=== PATIENT | male | born 1970 | race Caucasian/White ===

== ENCOUNTER 2018-06-13 00:43 | Emergency (ER) | payer OTHER, SELFPAY ==
[2018-06-13 00:44] VITALS: BP 125/86; PULSE 89; RESP 18; TEMP 35.9; O2SAT 99; BMI 34.9
[2018-06-13 01:06] VITALS: PULSE 88; RESP 16; TEMP 35.9; O2SAT 99
--- NOTE | 2018-06-13 01:34 | CT_ITS ---
STUDY: CT ABDOMEN AND PELVIS WITHOUT CONTRAST REASON FOR EXAM: Male, 48 years old. Low and mid abdominal pain since Tuesday. RADIATION DOSAGE (If Supplied By Facility): CTDIvol = ( 16.62 ) mGy, DLP = ( 938.37 ) mGycm TECHNIQUE: Transaxial images were obtained from the dome of the diaphragm to the symphysis pubis without oral contrast, and without intravenous contrast. Sagittal and coronal images were reconstructed. Individualized dose optimization techniques were used for this CT. COMPARISON: None. FINDINGS: The visualized lung bases are unremarkable. The visualized portions of the heart are within normal limits. There is decreased attenuation of the liver consistent with steatosis. Normal gallbladder and extrahepatic biliary system. Normal spleen. Normal pancreas. Normal bilateral adrenal glands. Normal right kidney. Normal left kidney. Normal visualized stomach. There is no evidence for dilated bowel, ascites or pneumoperitoneum. The small bowel has a grossly normal appearance. The descending colon is not distended. Most of stool visible in the transverse colon and ascending colon. There is acute inflammation within the pelvis located adjacent to abnormal appearing sigmoid colon. The abnormal sigmoid colon has thickened lennon with numerous diverticula suggesting sequela of acute diverticulitis. There is no evidence for abscess currently. The appendix is visualized and appears normal. There is patchy atherosclerotic calcification of the abdominal aorta, without a demonstrated aneurysm. Normal inferior vena cava. Normal retroperitoneum. Urinary bladder wall is abnormally thickened measuring approximately 6.6 mm. Normal visualized prostate gland. Normal abdominal wall. There are large lucencies within the right acetabulum and subarticular aspect of the right femur is probably related to degenerative arthropathy. Erosive arthropathy is possible as well. There also is a lucency within the right sided intertrochanteric femur. CT/Abdomen/Pelvis without Cont IMPRESSION: Probable sigmoid colon diverticulitis. Electronically Signed: Gema Sanford MD at 2:48 EDT , Service support ,
--- NOTE | 2018-06-13 01:36 | ED.VISSUMM ---
- ER Visit Summary Date of Service: 06/13/18 Chief Complaint: Abdominal pain History of Present Illness: The patient is a 48 M presenting with abdominal pain. He states this started on Tuesday. He has pain in the lower abdomen. He states he has a slight burning sensation when he urinates. Denies nausea or vomiting. Denies diarrhea or constipation. Denies fever. No change with eating. Denies testicular pain. Denies penile discharge or rash. Denies concern for STDs. Denies other complaints. Physical Examination: Vitals are stable. Patient is afebrile. Alert no acute distress. HEENT exam is unremarkable. Neck is supple. Lungs are clear and equal bilaterally. Heart is regular rate and rhythm. Abdomen is soft suprapubic tenderness with no rebound or guarding : No testicular tenderness, no discharge or rash. Extremities are unremarkable. Skin is warm and dry. No focal neurologic deficit. Remainder of exam is unremarkable. Emergency Department Course and Treatment: CBC shows white count 12.1. Chemistries unremarkable other than BUN 19. Urinalysis unremarkable. CT abdomen pelvis shows probable sigmoid colon diverticulitis. Patient drove himself to the ED. He is given a dose of Toradol IV. He is given Cipro and Flagyl. He is given prescriptions for Cipro and Flagyl. Advised to follow-up with his primary care physician. Advised to return to ED for worsening complaints Disposition: Discharge home Impression: Diverticulitis This note was generated with [employer] dictation software. It may contain incorrect words, spelling, and punctuation that were not noted in review of the chart prior to signing ED Disposition - Plan for ED Patient: Instructions: ED Diverticulitis Prescriptions: Metronidazole [Flagyl] 500 mg PO Q8H #21 tablet Ciprofloxacin [Cipro] 500 mg PO BID #14 tablet Referrals: Jono Patrick MD [NON-STAFF] -
[2018-06-13 02:03] LABS: Bacteria 0 SEEN /hpf (None Seen); Mucous, Urine 0 SEEN /hpf (<or=2+); Red Blood Cells-Urine 0 SEEN /hpf (0-5); White Blood Cells 0 SEEN /hpf (0-5)
[2018-06-13 02:08] LABS: Absolute Lymphocyte Count 1.53 X10^3/ul (0.83-4.51); Absolute Neutrophil Count 9.7 X10^3/uL (2.0-7.7); Basophil# 0.02 X10^3/uL; Basophil% 0.2 % (0-1); Eosinophil# 0.08 X10^3/uL; Eosinophils% 0.7 % (0-5); Hematocrit 45.1 % (40-54); Hemoglobin 14.5 g/dl (13.0-16.5); Lymphocyte # 1.53 X10^3/ul (4.0); Lymphocyte % 12.6 % (19-41); Mean Corp Hgb Conc 32.2 g/gl (32-36); Mean Corpuscular Hgb 29.4 pg (27.0-32.0); Mean Corpuscular Volume 91.3 fL (80-94); Mean Platelet Vol. 11.4 fl (6.2-12.0); Monocyte# 0.79 X10^3/uL; Monocyte% 6.5 % (0-10); Neutrophil # 9.68 X10^3/uL (2.7-7.7); Neutrophil % 79.8 % (47-70); Platelet Count 227 K/mm3 (150-450); RBC Distribution Width CV 14.3 % (11.6-14.6); Red Blood Count 4.94 M/mm3 (4.6-6.2); White Blood Count 12.1 K/mm3 (4.4-11.0)
[2018-06-13 02:11] LABS: POSITIVE COUNT NO; POSITIVE DIFFERENTIAL NO; POSITIVE MORPHOLOGY NO
[2018-06-13 02:14] LABS: Color, Urine Yellow (Yellow); Glucose, Dipstick Normal (Normal); Ketone-Dipstick Negative (Negative); Leukocyte Esterase-Dipstick Negative /ul (Negative); Nitrite-Dipstick Negative (Negative); Occult Blood-Urine Negative /ul (Negative); Protein-Dipstick 15 mg/dl (Negative); Urine Bilirubin Dipstick Negative (Negative); Urine Clarity Sl. Cloudy (Clear); Urine Urobilinogen Normal (Normal)
[2018-06-13 02:24] LABS: Squamous Epithelial Cells - UA 0-5 SEEN /hpf (0-5)
[2018-06-13 02:30] LABS: BUN 19 mg/dL (7-18); BUN/Creat Ratio 17.3 RATIO (10-20); Calcium,Total 8.8 mg/dL (8.5-10.1); Estimated Creatinine Clearance 81.18 ml/min; Glucose 85 mg/dL (74-106); Potassium 3.9 mmol/L (3.5-5.1); Sodium Level 138 mmol/L (136-145)
[2018-06-13 02:31] LABS: Anion Gap 8 (5-15); Chloride 104 mmol/L (98-107)
[2018-06-13 02:57] LABS: EST Glomerular Filtration Rate 77 mL/min (>60); Est Glom Filt Rate - Afr Amer 93 mL/min (>60)
--- NOTE | 2018-06-13 03:06 | ED.DEP ---
ED Disposition - Plan for ED Patient: Instructions: ED Diverticulitis Prescriptions: Metronidazole [Flagyl] 500 mg PO Q8H #21 tablet Ciprofloxacin [Cipro] 500 mg PO BID #14 tablet Referrals: Jono Patrick MD [NON-STAFF] -
[2018-06-13] MEDS: Ketorolac 30 MG/ML Syringe IV (03:19)
[2018-06-13] MEDS: metroNIDAZOLE 500 MG Tablet PO (03:19)
[2018-06-13] MEDS: Ciprofloxacin 500 MG Tablet PO (03:19)
[2018-06-13 03:21] VITALS: BP 157/86; PULSE 75; RESP 16; O2SAT 99
== END 2018-06-13 03:29 | disposition home or self-care (01) ==
LOC: ED 02:27
PROVIDERS: Emergency Provider Emergency Medicine
DX: K57.92 Diverticulitis of intestine, part unspecified, without perforation or abscess without bleeding (principal); I10 Essential (primary) hypertension; R30.0 Dysuria
CPT/HCPCS: 74176; 80048; 81001; 85025; 96374; 99284; A4216

== ENCOUNTER 2018-07-28 06:56 | Day surgery (SDC) | payer OTHER, SELFPAY ==
[2018-06-29 07:52] VITALS: BMI 34.9
--- NOTE | 2018-06-29 08:02 | HP_ITS ---
Intake Vital Signs 06/29/18 Body Mass Index (BMI) 34.9 06/29/18 Height 5 ft 8 in 06/29/18 Weight: 220 lb 06/29/18 Body Mass Index (BMI) 33.4 06/29/18 Blood Pressure 132/89 H 06/29/18 Blood Pressure Location Lt brachial 06/29/18 Blood Pressure Position Sitting 06/29/18 Respiratory Rate 18 Intake Visit Reasons: Discuss C-Scope DX Diverticulitis [place]f[employer] Technician Required: No Is patient in pain?: No Allergies No Known Allergies Allergy (Verified 06/29/18 07:52) Medications amoxicillin 875 mg-potassium clavulanate 125 mg tablet 1 tab PO BID #14 tab 06/29/18 [Rx Confirmed 06/29/18] PFSH Medical History Esophageal obstruction due to food impaction (Acute) Diverticulitis (Acute) High cholesterol (Acute) Rectal bleeding (Acute) HTN (hypertension) (Chronic) Surgical History H/O microdiscectomy (Acute) Family History Father Cancer Social History Smoking Status: Never smoker alcohol intake: current alcohol intake frequency: a few times a month ROS General General: Yes weight change and fatigue; no appetite, colon cancer, breast cancer or weakness HEENT HEENT: Yes difficulty swallowing; no eye injury, eye surgery, swollen glands or hoarseness Endo Endocrine: No thyroid disease, diabetes mellitus, thyroid cancer, Hair loss, heat intolerance or cold intolerance Skin Skin: No rash or changing moles Breast Breast: No left breast lump, right breast lump, nipple discharge, breast pain, abnormal mammogram, abnormal US or breast enlargement Musc Musculoskeletal: Yes back problems and arthritis; no rheumatoid arthritis, gout or joint pain Cardio Cardiovascular: Yes high blood pressure; no murmur, pacemaker, heart disease, atrial fibrillation, heart attack, heart stent, palpitations, shortness of breat with exertion or chest pain Psych Psychiatric: No depression, anxiety or hearing voices Resp Respiratory: No shortness of breath, No sleep apnea, No cough, No COPD, No asthma, No emphysema, No wheezing Gastro Gastrointestinal: Yes abdominal pain, No nausea or vomiting, No diarrhea, Yes constipation, Yes blood in stool, No acid reflux, No hemorrhoids, No ulcers, No gallbladder problem, No black,tarry stools Kurtis Hematologic: No blood thinners, No blood disorders, No bleeding, No anemia, No blood clots Neuro Neurologic: No system reviewed and no additional complaints, except as docu, No as per HPI, No abnormal walking, No abnormal hearing, No abnormal movements, No abnormal speech, No behavioral changes, No burning sensations, No confusion, No seizure-like activity, No unsteadiness, No dizziness, No localized weakness, No frequent falls, No headache(s), No lack of coordination, No loss of vision, No memory loss, Yes numbness, No other visual disturbances, No radiating pain, No restless legs, No sensory deficit, No fainting, Yes tingling, No tremor(s), No weakness, No other Exam Const General: cooperative, healthy appearing, comfortable, no acute distress Nutritional Appearance: overweight Orientation: alert, awake HENMT Head: normal to inspection Chest Breast Palpation: No nipple discharge Resp Effort & Inspection: normal respiratory effort Auscultation: clear to auscultation bilaterally Cardio Rate: regular rate Rhythm: regular rhythm Heart Sounds: no murmurs GI Palpation: soft, no hepatosplenomegaly Auscultation: normal bowel sounds Other: Mild tenderness to palpation left lower quadrant and suprapubic area. No guarding or rebound. No mass. Musc Cervical Spine: normal cervical lordosis Neuro Cranial Nerves: CN's II-XI intact bilaterally Extrem General: no calf tenderness bilaterally Psych Affect: normal affect Assessment & Plan Problems 1. Diverticulitis K57.92 2. Esophageal obstruction due to food impaction K22.2; T18.128A Plan I have personally reviewed the patient's CT scan and concur with probable acute sigmoid diverticulitis. I am recommending to him a colonoscopy with possible biopsy or polypectomy is indicated. He is aware of the technique, benefit, risks, alternatives. During the interview however a separate issue came to light which sounds like he has intermittent episodes of esophageal food bolus obstruction which he is able to clear with self induced vomiting. I am recommending to him a simultaneous esophagogastroduodenoscopy with possible biopsy or polypectomy removal at this setting of his colonoscopy. He is still mildly tender on examination. It is not clear whether the infection made him so lethargic missing work or whether it was the ciprofloxacin and metronidazole that was used to treat his diverticulitis. 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 He has had an opportunity to ask and have questions answered. We will treat with a one-week course of antibiotics and anticipate follow-up endoscopy subsequent to that. I very much appreciate the kind opportunity of assisting with surgical care Sister is Sowmya CC:Yolette To, DONOVAN-Flory Cortes M.D., F.A.C.S. Medications New: amoxicillin-pot clavulanate 875-125 mg 1 tab PO BID 14 tabs 0RF Coding Level of Care Code Off vis,new,level 3 Diagnoses Diverticulitis K57.92 Esophageal obstruction due to food impaction K22.2; T18.128A
[2018-07-28] VITALS (7 sets, daily range): BP systolic 120–137; BP diastolic 82–97; PULSE 63–75; RESP 16–18; TEMP 36.3–36.8; O2SAT 96–100; BMI 32.3
--- NOTE | 2018-07-28 | IMM_PTH ---
PATIENT: NAN CARLSON LOC: EN U#:[id number] AGE/SX: 48/M ROOM: RE07/28/[address]: Dr. Vasquez Cortes MD : 1970 BED: DIS: 07/28/2018 SPEC #: [id number] RECD: 07/31/18 13:11 STATUS: DEMI LILLIAM #: [id number] SILAS: 07/28/18 00:[address]: Vasquez Cortes DEPT: IMMUNOHISTOCHEMISTRY RECD BY: Jenn Blanco ENTERED: 07/31/18 13:14 SP TYPE: IMMUNO OTHR DR: Yolette To, ORE FEEDER-C Tissues: A - Stomach, NOS Procedures: H Pylori (initial) PHYSICIAN & INSTITUTION [place] [id number] SPECIMEN INFORMATION: Tissue Source: A - Antrum biopsy Clinical Info: Esophageal obstruction, food impaction Specimen Number: [id number] CPT code: 41407 METHODOLOGY: Deparaffinized sections of prefer/formalin-fixed tissue or PAP/DQ stained slides are incubated with monoclonal/polyclonal antibodies/oligonucleotide probes. Localization is made via biotin free immunoperoxidase method. Appropriate controls are performed and reacted as expected. Results on target cell population are indicated in the following table: RESULTS: ANTIBODY / CLONE RESULT Block A H Pylori (polyclonal) negative These tests were developed and their performance characteristics determined by [facility]. They may not have been cleared or approved by the U.S. Food and Drug Administration. The FDA has determined that such clearance or approval is not necessary. INTERPRETATION: A. Antrum biopsy: Negative for Helicobacter pylori organisms. SJ:noe 08/01/18
--- NOTE | 2018-07-28 08:00 | EGD_PTH ---
PATIENT: NAN CARLSON LOC: EN U#:[id number] AGE/SX: 48/M ROOM: RE07/28/[address]: Dr. Vasquez Cortes MD : 1970 BED: DIS: 07/28/2018 SPEC #: [id number] RECD: 07/28/18 09:57 STATUS: DEMI LILLIAM #: [id number] SILAS: 07/28/18 08:[address]: Vasquez Cortes DEPT: SURGICAL PATHOLOGY RECD BY: Jaiden Guzmán ENTERED: 07/28/18 11:34 SP TYPE: EGD BIOPSY OTHR DR: Yolette To, TANBARK LABORER-C Tissues: A - Gastric mucous membrane B - Gastric mucous membrane C - Esophageal mucous membrane D - Esophageal mucous membrane E - Descending colon F - Descending colon G - Sigmoid colon biopsy Procedures: Special Stain Group II Surgery Specimen Level IV Alcian Blue/PAS (control) HEADER OPERATION: Colonoscopy, EGD ([facility] [place] PRE-OP DIAGNOSIS: Esophageal obstruction D/T food impaction TISSUE SUBMITTED: A - Antrum biopsy, B - Body of stomach polyp, C - Distal esophagus biopsy, D - Mid esophagus biopsy, E - Descending polyp, F - Distal descending polyp, G - Mid sigmoid polyp MICROSCOPIC DIAGNOSIS A. Antrum biopsy: Mild gastritis. See microscopic description and comment. B. Body of stomach polyp, biopsy: Suggestive of fundic gland polyp. Focal mucosal congestion and hemorrhage. C. Distal esophagus, biopsy: Fragments of gastroesophageal mucosa with mild chronic inflammation. Intestinal metaplasia (goblet cell metaplasia) is not identified. See comment. D. Mid esophagus, biopsy: Fragments of squamous epithelium with congestion and minimal chronic inflammation. E. Descending colon polyp, biopsy: Fragments of tubulovillous adenoma. F. Distal descending colon polyp, biopsy: Tubulovillous adenoma with focal changes consistent with inflammatory polyp. G. Sigmoid polyp, biopsy: Fragments of serrated adenoma (mixed hyperplastic polyp and tubular adenoma). SJ:rg 07/31/18 COMMENT A. The results of immunohistochemistry for Helicobacter pylori will be reported separately ([id number]). C. The specimen predominantly consists of squamous epithelium. Alcian blue/PAS stain with matched control is used in the evaluation of the specimen. MICROSCOPIC DESCRIPTION Slides are reviewed. A. The specimen shows fragments of gastric mucosa with chronic inflammatory cell infiltrates in the lamina propria consisting of lymphocytes and plasma cells, consistent with mild chronic gastritis. GROSS DESCRIPTION A - Received in fixative is one container labeled with the patient's name and designated antrum biopsy. The specimen consists of two irregular fragments of light wu soft tissue that in aggregate measure 0.4 x 0.1 x 0.1 cm. The specimen is totally submitted in one cassette. B - Received in fixative is one container labeled with the patient's name and designated body of stomach polyp. The specimen consists of one irregular fragment of light wu soft tissue that measures 0.3 x 0.3 x 0.1 cm. The specimen is totally submitted in one cassette. C - Received in fixative is one container labeled with the patient's name and designated distal esophagus biopsy. The specimen consists of multiple irregular fragments of light wu soft tissue that in aggregate measure 0.8 x 0.2 x 0.1 cm. The specimen is totally submitted in one cassette. D - Received in fixative is one container labeled with the patient's name and designated mid esophagus biopsy. The specimen consists of two irregular fragments of light wu soft tissue that in aggregate measure 0.3 x 0.3 x 0.1 cm. The specimen is totally submitted in one cassette. E - Received in fixative is one container labeled with the patient's name and designated descending polyp. The specimen consists of multiple irregular fragments of light wu soft tissue that in aggregate measure 0.8 x 0.8 x 0.1 cm. The specimen is totally submitted in one cassette. F - Received in fixative is one container labeled with the patient's name and designated distal descending polyp. The specimen consists of a pink-red polyp measuring 1 x 1 x 0.7 cm. The apparent base is inked. The polyp is bisected. The entire specimen is submitted in one cassette. G - Received in fixative is one container labeled with the patient's name and designated sigmoid polyp. The specimen consists of two irregular fragments of light wu soft tissue that in aggregate measure 0.5 x 0.3 x 0.1 cm. The specimen is totally submitted in one cassette. / SJ:rg 4/26/19 TC:1 CPT: 62437 x7, 40242
--- NOTE | 2018-07-28 09:21 | OP.ENDO_ITS ---
07/28/2018 Horace Newman Re : Upper GI endoscopy procedure for Haseeb Ovalle Yousuf This procedure was performed on Saturday, July 28, 2018. My impressions and recommendations are as follows: Impressions : - Reflux esophagitis. Biopsied. Also mid esophagus biopsied - Small hiatal hernia. - Erythematous mucosa in the antrum. Biopsied. - A few gastric polyps. Resected and retrieved one. - Normal examined duodenum. Recommendations : - Await pathology results. - Discharge patient to home. - Resume previous diet. - Continue present medications. - Use Prilosec (omeprazole) 40 mg PO daily. My findings are described in the full procedure note, which is enclosed. If I can be of further assistance, please feel free to contact me at Doctor phone number(s): Work: . Sincerely, Vasquez Cortes MD 07/28/2018 9:21:35 AM This report has been signed electronically.
--- NOTE | 2018-07-28 09:29 | OP.ENDO_ITS ---
07/28/2018 Horace Newman Re : Colonoscopy procedure for Haseeb Ruizler This procedure was performed on Saturday, July 28, 2018. My impressions and recommendations are as follows: Impressions : - Hemorrhoids found on perianal exam. - One 10 mm polyp in the mid descending colon, removed using injection-lift and a hot snare. Resected and retrieved. Clip was placed. - One 13 mm polyp in the distal descending colon. Pedunculated, endoloop replaced the snare resected and retrieved. Clip was placed. - One 5 mm polyp in the mid sigmoid colon, removed with a cold biopsy forceps. Resected and retrieved. - Diverticulosis in the sigmoid colon and in the descending colon. Recommendations : - Discharge patient to home. - Resume previous diet. - Continue present medications. - Repeat colonoscopy in 1 year for surveillance based on pathology results. - Telephone my office for pathology results in 1 week. My findings are described in the full procedure note, which is enclosed. If I can be of further assistance, please feel free to contact me at Doctor phone number(s): Work: . Sincerely, Vasquez Cortes MD 07/28/2018 9:29:02 AM This report has been signed electronically.
== END 2018-07-28 10:16 | disposition home or self-care (01) ==
LOC: EN 06:57 → AC 06:58
PROVIDERS: Family Provider Nurse Practitioner Family; PCP Nurse Practitioner Family; Referring Provider Nurse Practitioner Family; Visit Provider Surgery
PROC: 0DJD8ZZ Inspection of Lower Intestinal Tract, Via Natural or Artificial Opening Endoscopic (ICD-10-PCS; CPT 45378; principal; 2018-07-28 07:55)
DX: K22.2 Esophageal obstruction (principal); K21.0 Gastro-esophageal reflux disease with esophagitis; K44.9 Diaphragmatic hernia without obstruction or gangrene; K29.70 Gastritis, unspecified, without bleeding; K31.7 Polyp of stomach and duodenum; D12.4 Benign neoplasm of descending colon; D12.5 Benign neoplasm of sigmoid colon; K57.32 Diverticulitis of large intestine without perforation or abscess without bleeding; R13.10 Dysphagia, unspecified; K31.89 Other diseases of stomach and duodenum; K64.9 Unspecified hemorrhoids; I10 Essential (primary) hypertension; E78.00 Pure hypercholesterolemia, unspecified; E66.3 Overweight; Z68.32 Body mass index [BMI] 32.0-32.9, adult
CPT/HCPCS: 43239; 45380; 45385; 88305; 88313; 88342; J7120; A4216

== ENCOUNTER 2018-11-27 15:39 | Emergency (ER) | payer OTHER, SELFPAY ==
[2018-07-28 07:13] VITALS: BMI 32.3
[2018-11-27 15:40] VITALS: BP 161/97; PULSE 99; RESP 18; TEMP 36.4; O2SAT 99; BMI 33.2
--- NOTE | 2018-11-27 16:18 | ED.VIS.GEN ---
History of Present Illness Chief Complaint: Back Narrative: Patient has been having right buttock discomfort with radiation down his right lower extremity for the past month. He saw 2 different independent orthopedic surgeons who told him he needed a right hip replacement, patient states he did and he had it done 2 weeks ago in [place]. He states he is still having the sciatica pain, and as a matter fact noticed it was pretty significant in the recovery room after his surgery. He states in the past 2 weeks sciatica pain is gotten worse and worse to the point where he is almost bedbound because he cannot sit or stand for more than a couple minutes because of excruciating pain. His hip is sore but is not the source of the pain that is shooting down his leg to his foot along with numbness and now he is weak. Does not know exactly how long he has had weakness in his leg. Denies any bowel or bladder dysfunction. No numbness in his groin. Denies any fevers. He states that [facility] offered to help him with regards to trying to get an MRI approved but they would have to see him first and that is 1.5 hours away and he cannot physically be in the position to be in a car because of excruciating pain despite taking several oxycodone and hydromorphone and prednisone. He states he has seen a chiropractor for this and was directed to the hospital, which is why he is here. - Past Medical History (1) Diverticulitis Status: Suspected Past Medical History - Allergies and Home Meds Allergies/Adverse Reactions: Allergies No Known Allergies Allergy (Verified 07/28/18 07:25) Primary Care Physician: Yolette To NP-C [Primary Care Provider] - Surgical History: total hip arthroplasty Lives: Spouse/ Significant Other Smoking Status: Never smoker Review of Systems General: Denies: Chills, Fever, Sweats Eyes: Denies: Visual changes - bilaterally, Diplopia ENT: Denies: Rhinorrhea, Sore throat Cardiovascular: Denies: Chest pain, Palpitations Respiratory: Denies: Dyspnea, Cough, Dyspnea on exertion Gastrointestinal: Denies: Abdominal pain, Nausea, Vomiting, Diarrhea, Melena, Hematochezia Genitourinary: Denies: Dysuria, Hematuria, Frequency Musculoskeletal: Reports: Back pain, Extremity Pain Skin: Denies: Rash, Wounds Neurological: Reports: Weakness, Numbness. Denies: Headache Physical Exam Vital Signs/Narrative: Vital Signs Temp Pulse Resp BP Pulse Ox 11/27/18 15:40 97.6 F L 99 18 161/97 H 99 Inital Vital Signs reviewed: Yes General: Well nourished, Well developed, No Acute Distress Head: Normocephalic, Atraumatic Eyes: Perrl, EOMI ENT: Moist mucous membranes, No rhinorrhea Cardiovascular: Regular rate, Regular rhythm, No murmurs Respiratory: No distress, CTA bilaterally, Chest nontender Abdomen: Soft, Nontender, Nondistended, Normal bowel sounds Back: Nontender, Normal Inspection. Negative for: CVA tenderness, Spinal tenderness Extremities: No edema, Tenderness - Mild tenderness around right hip, good range of motion without significant pain Skin: Normal color, No rash, - - Right hip incision clean dry and intact, mildly sore without signs of infection. Neurological: Alert, Oriented x3, Cranial nerves II-XII grossly intact, Parasthesia - Left anterior thigh, normal sensation below the knee, Weakness - Right lower extremity 4/5 strength throughout. Decreased patella and Achilles reflexes. Toes downgoing bilaterally, no clonus bilaterally. Normal DTRs and strength left lower extremity. Psychological: Normal affect, Normal Mood Diagnostic/Tx/Re-eval Clinical Impression(s) from Imaging Studies Lumbar Spine X-Ray 11/27/18 16:26 IMPRESSION: 1. Mild degenerative changes. No fracture. Electronically Signed: Batsheva Willson MD at 16:50 EDT Tel , Service support , - Medical Decision Making I discussed at length patient with his options. I attempted to get an MRI, however MRI is no longer doing inpatients because it is after hours and they are doing outpatient for a couple of hours, and he does not have acute neurologic compromise to justify a stat MRI. They recommend getting an outpatient MRI. We attempted to get preapproval through the hospital preapproval personnel, however someone has already started the preapproval process for a lumbar spine MRI on behalf of this patient, and they will not give us that information because of privacy laws, the patient thinks it might of been his orthopedic down at [place]. We did obtain some x-rays in the meantime, they showed some degenerative changes but nothing acute. He was comfortable as long as he was supine. I offered admission, however knowing that it will be a 23-hour observation, if it is done to obtain an MRI, he will likely be charged for the visit because insurance will not cover it. In discussing this with him, he opts to go home and continue to attempt the preapproval process as an outpatient. He has for some analgesics prior to going because it is painful to get in position for car ride, which I have no problem with. ED Disposition - Plan for ED Patient: Disposition: Home or Assisted Living Diagnosis: Back pain with right-sided sciatica Instructions: BACK PAIN w/ SCIATICA [facility]opaedic, [facility] [Other] (rosa m)
--- NOTE | 2018-11-27 16:26 | RAD_ITS ---
STUDY: X-RAY - LUMBAR SPINE REASON FOR EXAM: Male, 48 years old. Left side hip pain. TECHNIQUE: 3 view(s) of the lumbar spine were obtained. COMPARISON: None FINDINGS: Normal lumbar lordosis. There is no substantial scoliosis. No fracture or subluxation. Vertebral body heights are well-maintained. Mild disc space narrowing at L4-5. Remaining disc space heights are unremarkable. The soft tissue structures are unremarkable. RAD/Lumbar Spine 2 or 3 Views IMPRESSION: 1. Mild degenerative changes. No fracture. Electronically Signed: Batsheva Willson MD at 16:50 EDT Tel , Service support ,
[2018-11-27] MEDS: HYDROmorphone 1 MG/ML Syringe 2 MG IM (18:23)
[2018-11-27 19:08] VITALS: BP 124/78; PULSE 72; RESP 16; O2SAT 97
== END 2018-11-27 19:09 | disposition home or self-care (01) ==
PROVIDERS: Emergency Provider Emergency Medicine; Family Provider Nurse Practitioner Family; PCP Nurse Practitioner Family
DX: M54.31 Sciatica, right side (principal); R20.0 Anesthesia of skin; Z79.82 Long term (current) use of aspirin; Z79.1 Long term (current) use of non-steroidal anti-inflammatories (NSAID); Z79.891 Long term (current) use of opiate analgesic; Z79.899 Other long term (current) drug therapy; Z74.01 Bed confinement status; Z96.641 Presence of right artificial hip joint
CPT/HCPCS: 72100; 96372; 99282

== ENCOUNTER → 2018-12-01 14:21 | Outpatient (CLI) | payer OTHER, SELFPAY ==
[2018-11-27 15:40] VITALS: BMI 33.2
--- NOTE | 2018-12-01 14:27 | MRI_ITS ---
STUDY: MRI LUMBAR SPINE WITHOUT CONTRAST REASON FOR EXAM: Male, 48 years old. Severe back pain, right hip pain and decreased reflexes in the right leg. TECHNIQUE: Standardized fat and water weighted pulse sequences were obtained in the sagittal and axial planes. COMPARISON: CT of the abdomen and pelvis without contrast 06/13/2018. FINDINGS: T11-T12: (Sagittal only). Normal endplates. Mild disc space height narrowing. Normal disc hydration and morphology. Normal ventral extra dural defect. Normal central canal and bilateral intervertebral neural foramina. Benign focal fatty infiltration involving the posterior-superior corner of the T11 vertebral body is confirmed on the sagittal STIR sequence. T12-L1: (Sagittal only). Normal endplates. Normal disc height, hydration and morphology. No ventral extradural defect. Normal central canal and bilateral intervertebral neural foramina. Normal lumbar lordosis. There is no substantial scoliosis. Normal conus medullaris that terminates at the lower T12 vertebral body level. L1-2: Normal endplates. Normal disc height, hydration and morphology. Normal bilateral facet joints. Normal central canal and bilateral lateral recesses. Normal bilateral intervertebral neural foramina. Small left renal cyst is visible at this level. L2-3: Normal endplates. Normal disc height. Minimal loss of disc hydration. Small posterior T2 hyperintensity zone underneath the right posterior bulging annulus is annular fissure. Mild asymmetric central canal stenosis with an AP canal diameter of 8 mm. Mild dorsal epidural lipomatosis. Normal bilateral lateral recesses. Normal facet joints. Normal bilateral intervertebral neural foramina. L3-4: Normal endplates. Normal disc height. Small posterior T2 hyperintensity zone underneath the posterior bulging annulus is annular fissure. Moderate central canal stenosis with an AP canal diameter of 7 mm. Prominent dorsal epidural lipomatosis. Normal facet joints. Normal bilateral lateral recesses. Normal bilateral intervertebral neural foramina. Round benign focal fatty infiltration in the right central aspect of the L3 vertebral body is confirmed on the sagittal STIR sequence. L4-5: Schmorl's node in the L4 inferior endplate. Normal L5 superior endplate. Prominent right ventral extradural defect is highly suspicious for recurrent disc extrusion. This is displacing the right L5 nerve root sleeve. Posterior bulging of the thecal sac underneath the hemilaminectomy site. Normal left lateral recesses. Normal central canal. Normal bilateral intervertebral neural foramina. L5-S1: Normal endplates. Moderate disc space height narrowing. Posterior marginal spurs without deformity of the thecal sac due to the prominent ventral epidural fat. Spurs are better seen on the prior CT. Normal tapered termination of the thecal sac. Posterior bulging of the thecal sac from prior laminectomy. Normal bilateral lateral recesses. Moderate left degenerative facet arthropathy. Normal right facet joint. Normal bilateral intervertebral neural foramina. Normal visualized sacral ala. Normal visualized paraspinous soft tissue structures. MRI/Spine Lumbar (Routine) IMPRESSION: 1. Large right ventral extradural defect at L4-L5 disc level is highly suspicious for recurrent disc extrusion. This is causing severe stenosis of the right lateral recess and posterior displacement of the right L5 nerve root sleeve. However, this ventral extradural defect was present on CT of the abdomen and pelvis of 06/13/2018. MRI of the lumbar spine with intravenous contrast will be very helpful in distinguishing postoperative fibrosis from recurrent disc extrusion. 2. Moderate central canal stenosis at L3-L4 disc level with an AP canal diameter of 7 mm, small posterior annular fissure underneath the posterior bulging annulus and prominent dorsal epidural lipomatosis. My opinion, this is unchanged when compared to 06/13/2018. 3. Mild asymmetric central canal stenosis at L2-L3 disc level with an AP canal diameter of 8 mm and a small posterior annular fissure underneath the right posterior bulging annulus at L2-L3 disc level. In my opinion, this is unchanged when compared to 06/13/2018. 4. Prominent posterior marginal spurs at L5-S1 disc level with moderate disc space height narrowing. These posterior marginal spurs are better seen on previous CT of 06/13/2018. No ventral extradural defect due to presence of prominent ventral epidural fat. Electronically Signed: Robert Gee MD at 15:51 EDT , Service support ,
== END ==
PROVIDERS: Family Provider Nurse Practitioner Family; PCP Nurse Practitioner Family
DX: M54.16 Radiculopathy, lumbar region (principal)
CPT/HCPCS: 72148

== ENCOUNTER 2020-05-06 06:46 | Day surgery (SDC) | payer OTHER, SELFPAY ==
[2020-05-06 07:19] VITALS: BP 138/91; PULSE 67; RESP 16; TEMP 36.7; O2SAT 94; BMI 36.1
[2020-05-06] MEDS: Lactated Ringers 1,000 ML 100 ML IV (07:24)
--- NOTE | 2020-05-06 08:03 | HP.PCM_ITS ---
Problem List (1) Personal history of colonic polyps Status: Acute History of Present Illness Date of Admission: 05/06/20 The patient is a 50 year old M who has a personal history of colon polyps and presents for colonoscopy. Virtual visit is as follows. Intake Intake Visit Reasons: PHONE VISIT, CSCOPE Allergies No Known Allergies Allergy (Verified 04/03/20 07:13) Medications magnesium oxide 500 mg tablet 500 mg PO QHS tab 04/03/20 [History Confirmed 04/03/20] PFSH Medical History (Updated 04/03/20 @ 07:[address] Vasquez Cortes MD) GERD with esophagitis (Acute) Gastritis (Acute) Personal history of colonic polyps (Acute) Esophageal obstruction due to food impaction (Acute) Diverticulitis (Acute) High cholesterol (Acute) Rectal bleeding (Acute) HTN (hypertension) (Chronic) Surgical History (Updated 04/03/20 @ 07:14 by Jillian Gibson) H/O microdiscectomy (Acute) History of colonoscopy (Acute ~01/2019) History of esophagogastroduodenoscopy (EGD) (Acute ~01/2019) Family History Father Cancer Social History (Updated 04/03/20 @ 07:[address] Vasquez Cortes MD) Smoking Status: Never smoker alcohol intake: current alcohol intake frequency: a few times a month HPI HPI Details: Patient was informed that this visit will be billed to patient. This visit was conducted during - pandemic. NAN CARLSON, is a 49 M who Was contacted by phone today. He is present in at his home and I am present in the office. On July 28, 2018 I performed a combined esophagogastroduodenoscopy with biopsy and colonoscopy with polypectomy. His upper endoscopy showed mild gastritis and some fundic gland polyps. The distal esophagus had some mild chronic inflammation. There was no evidence of Walsl's. The mid esophageal biopsies showed minimal chronic inflammation. The colonoscopyRequired in the mid descending colon a saline lift with hot snare resection and clip placement for 10 mm polyp which was tubulovillous adenoma. There was a distal descending colon polyp measuring 13 mm that was pedunculated. And an Endoloop was placed. And then a hemostatic clip was placed after resection as well. Pathology on that showed tubulovillous adenoma with focal changes consistent with an inflammatory polyp. And then additionally there is a sigmoid polyp measuring 5 mm that was taken with cold forceps. That was fragments of serrated adenoma mixed hyperplastic and tubular adenoma. I felt that he was at increased based upon this pathology and I recommended a very short-term follow-up colonoscopy.This is to assure that complete resection had been achieved. I discussedThe finding of the upper endoscopy as well. I encouraged him that if he is having some indigestion or reflux symptoms that he be on a acid reducing medication either omeprazole or famotidine.He expressed understanding. He otherwise denies any general health issues. Denies fever or chills or cough or shortness of breath. No abdominal change of bowel habits. No history of DVT. He denies any exposure to anyone known with COVID-19. Exam Details: Details:: Exam was limited due to phone visit with no video. Quality Reporting Tobacco Screening ([facility]) Smoking Status: Never smoker Assessment & Plan Problems 1. Personal history of colonic polyps Z86.010 2. Chronic superficial gastritis without bleeding K29.30 3. Gastroesophageal reflux disease with esophagitis without hemorrhage K21.00 Plan I recommended the patient a colonoscopy with possible biopsy or polypectomy as indicated. He is aware of the technique, benefit, risk, alternatives. His previous procedure was performed with monitored anesthesia care. We will do likewise. He will schedule and proceed at his discretion. Vasquez Cortes M.D., F.A.C.S. Coding Level of Care Code Level 2 Telephone Diagnoses Personal history of colonic polyps Z86.010 Chronic superficial gastritis without bleeding K29.30 ??Gastritis type: superficial ??Chronicity: chronic ??Gastritis bleeding: without bleeding Gastroesophageal reflux disease with esophagitis without hemorrhage K21.00 ??Esophagitis bleeding: without hemorrhage Past Medical History Medical History: Medical History (Last Reviewed 04/03/20 @ 07:14 by Jillian Gibson) GERD with esophagitis (Acute) K21.00 Gastritis (Acute) K29.70 Personal history of colonic polyps (Acute) Z86.010 Esophageal obstruction due to food impaction (Acute) K22.2, T18.128A Diverticulitis K57.92 High cholesterol E78.00 Rectal bleeding K62.5 HTN (hypertension) I10 Allergies No Known Allergies Allergy (Verified 05/06/20 07:03) Home Medications: Ambulatory Orders Medication Instructions Recorded magnesium oxide 500 mg tablet 500 mg PO QHS tab 04/03/20 Surgical History: Surgical History (Last Updated 04/03/20 @ 07:14 by Jillian Gibson) H/O microdiscectomy Z98.890 x 3 History of colonoscopy Onset Date: ~01/2019 Z98.890 History of esophagogastroduodenoscopy (EGD) Onset Date: ~01/2019 Z98.890 Surgical History: total hip arthroplasty Smoking Status: Current some day smoker Tobacco Use: Chew Review of Systems Constitutional: Denies: Fever Cardiovascular: Denies: Chest Pain Respiratory: Denies: Cough, Shortness of Breath Gastrointestinal: Denies: Abdominal Pain Endocrine: Denies: Change in Body Habitus VTE Information - Inpt Only VTE Present on Admission: No - Physical Exam Vitals/I&O's: Vital Signs Temp Pulse Resp BP Pulse Ox 98.1 F 67 16 138/91 H 94 05/06/20 07:19 05/06/20 07:19 05/06/20 07:19 05/06/20 07:05/06/20 07:19 Oxygen Delivery Method Room Air Weight: 244 lb 11.41 oz Body Mass Index (BMI) 36.1 General: Alert, Oriented x3, Cooperative, No apparent distress Oral: Moist Mucosa Lungs: Clear to auscultation, Normal air movement Cardiovascular: Regular rate, Regular Rhythm Abdomen: Soft, Non Tender Extremities: No Calf Tenderness Psych/Mental Status: Normal Affect Microbiology Past 72 Hours 05/05/20 11:20 Interface Orders SARS-CoV-2 Antigen (Rapid) - Final Current Medications Lactated Ringer's () 1,000 mls @ 100 mls/hr IV .Q10H [facility] Last Admin: 05/06/20 07:24 Dose: 100 mls/hr Documented by: Assessment/Plan All Active Problems (Last Reviewed 04/03/20 @ 07:14 by Jillian Gibson) GERD with esophagitis (Acute) Gastritis (Acute) Personal history of colonic polyps (Acute) Esophageal obstruction due to food impaction (Acute) Patient with a previous history of colon polyps. I recommend to him a colonoscopy with possible biopsy or polypectomy is indicated. He is aware of the technique, benefit, risk, alternatives. He has had an opportunity to ask and have questions answered. We will proceed as noted. Vasquez Cortes M.D., F.A.C.S. Procedure Criteria Procedure Type: Elective COVID Risk Discussion: The surgeon/proceduralist and patient have discussed in detail the risk of exposure to and/or potential harm posed by the COVID-19 virus with having a surgery/procedure at this time versus the risk of delaying the surger y/procedure. It is not possible to know either the risk of delaying the surgery or procedure or chance of getting an infection with perfect accuracy, but a joint decision was made between the patient and the surgeon/proceduralist to proceed at this time with the scheduled surgery/procedure as indicated on the consent form.
[2020-05-06 08:32] VITALS: BP 116/72; BP 138/91; PULSE 74; RESP 16; TEMP 36.5; O2SAT 94
--- NOTE | 2020-05-06 08:35 | OP.CCLET_ITS ---
05/06/2020 Rhiannon Obrien Do Re : Colonoscopy procedure for Haseeb Hadley Dear Dr. Obrien This procedure was performed on Wednesday, May 06, 2020. My impressions and recommendations are as follows: Impressions : - Non-thrombosed internal hemorrhoids and internal hemorrhoids that prolapse with straining, but spontaneously regress to the resting position (Grade II) found on digital rectal exam. - Diverticulosis in the sigmoid colon and in the descending colon. - The examination was otherwise normal. - No specimens collected. Recommendations : - Discharge patient to home. - Resume previous diet. - Continue present medications. - Repeat colonoscopy in 5 years for surveillance. My findings are described in the full procedure note, which is enclosed. If I can be of further assistance, please feel free to contact me at Doctor phone number(s): Work: . Sincerely, Vasquez Cortes MD 05/06/2020 8:35:10 AM This report has been signed electronically.
--- NOTE | 2020-05-06 08:35 | OP.COLON_ITS ---
Patient Name: Haseeb Hadley Procedure Date: 05/06/2020 8:06 AM Date of : 1970 Age: 50 Procedure: Colonoscopy Indications: High risk colon cancer surveillance: Personal history of colonic polyps Providers: Vasquez Cortes MD Referring MD: Rhiannon Obrien Do Medicines: See the Anesthesia note for documentation of the administered medications Patient Profile: Last Colonoscopy: July 2018. Complications: No immediate complications. Procedure: Pre-Anesthesia Assessment: - Prior to the procedure, a History and Physical was performed, and patient medications and allergies were reviewed. The patient's tolerance of previous anesthesia was also reviewed. The risks and benefits of the procedure and the sedation options and risks were discussed with the patient. All questions were answered, and informed consent was obtained. Prior Anticoagulants: The patient has taken no previous anticoagulant or antiplatelet agents. ASA Grade Assessment: II - A patient with mild systemic disease. After reviewing the risks and benefits, the patient was deemed in satisfactory condition to undergo the procedure. After I obtained informed consent, the scope was passed under direct vision. Throughout the procedure, the patient's blood pressure, pulse, and oxygen saturations were monitored continuously. The colonoscope was introduced through the anus and advanced to the cecum, identified by appendiceal orifice and ileocecal valve. The colonoscopy was performed without difficulty. The patient tolerated the procedure well. The quality of the bowel preparation was good. The ileocecal valve and the appendiceal orifice were photographed. Scope In: 8:17:17 AM Scope Withdrawal Time 0 hours 8 minutes 40 seconds Scope Out: 8:29:53 AM Total Procedure Duration Time 0 hours 12 minutes 36 seconds Findings: The digital rectal exam findings include non-thrombosed internal hemorrhoids and internal hemorrhoids that prolapse with straining, but spontaneously regress to the resting position (Grade II). Pertinent negatives include normal prostate (size, shape, and consistency). Multiple diverticula were found in the sigmoid colon and descending colon. The exam was otherwise without abnormality. Impression: - Non-thrombosed internal hemorrhoids and internal hemorrhoids that prolapse with straining, but spontaneously regress to the resting position (Grade II) found on digital rectal exam. - Diverticulosis in the sigmoid colon and in the descending colon. - The examination was otherwise normal. - No specimens collected. Recommendation: - Discharge patient to home. - Resume previous diet. - Continue present medications. - Repeat colonoscopy in 5 years for surveillance. Procedure Code(s): --- Professional --- 39335, Colonoscopy, flexible; diagnostic, including collection of specimen(s) by brushing or washing, when performed (separate procedure) Diagnosis Code(s): --- Professional --- Z86.010, Personal history of colonic polyps K64.1, Second degree hemorrhoids K57.30, Diverticulosis of large intestine without perforation or abscess without bleeding CPT copyright 2017 [employer]. All rights reserved. The codes documented in this report are preliminary and upon inspector filters review may be revised to meet current compliance requirements. Vasquez Cortes MD 05/06/2020 8:35:10 AM This report has been signed electronically. Number of Addenda: 0 Note Initiated On: 05/06/2020 8:06 AM
[2020-05-06 08:37] VITALS: BP 103/68; BP 138/91; PULSE 75; RESP 16; O2SAT 95
[2020-05-06 08:42] VITALS: BP 138/91; BP 99/73; PULSE 80; RESP 16; O2SAT 94
[2020-05-06 08:47] VITALS: BP 105/62; BP 138/91; PULSE 63; RESP 16; TEMP 36.2; O2SAT 958
[2020-05-06 08:55] VITALS: BP 138/91
== END 2020-05-06 09:07 | disposition home or self-care (01) ==
LOC: EN 06:47 → AC 06:47
PROVIDERS: PCP Family Medicine; Referring Provider Family Medicine; Visit Provider Surgery
PROC: 0DJD8ZZ Inspection of Lower Intestinal Tract, Via Natural or Artificial Opening Endoscopic (ICD-10-PCS; CPT 45378; principal; 2020-05-06 07:55)
DX: Z12.11 Encounter for screening for malignant neoplasm of colon (principal); K57.30 Diverticulosis of large intestine without perforation or abscess without bleeding; K64.1 Second degree hemorrhoids; Z20.822 Contact with and (suspected) exposure to COVID-19; K21.00 Gastro-esophageal reflux disease with esophagitis, without bleeding; I10 Essential (primary) hypertension; E78.00 Pure hypercholesterolemia, unspecified; G25.81 Restless legs syndrome; F17.220 Nicotine dependence, chewing tobacco, uncomplicated; Z86.010 Personal history of colon polyps
CPT/HCPCS: 45378; 87426; C9803; J7120

== ENCOUNTER → 2022-11-30 | Outpatient (CLI) | payer OTHER, SELFPAY ==
--- NOTE | 2022-11-30 14:00 | CT_ITS ---
We are attempting to reach an attending provider to discuss findings. An addendum with communication details will be sent when the communication is complete. STUDY: CT ABDOMEN AND PELVIS WITH CONTRAST REASON FOR EXAM: Male, 52 years old. Abdominal pain, acute bowel changes RADIATION DOSAGE (If Supplied By Facility): CTDIvol = ( 21.18 ) mGy, DLP = ( 1725.45 ) mGycm TECHNIQUE: Transaxial images were obtained from the dome of the diaphragm to the symphysis pubis without oral contrast. Oral and amp; IV Readi-CAT and amp; 100mL Isovue-300 was administered. Sagittal and coronal images were reconstructed. Individualized dose optimization techniques were used for this CT. COMPARISON: June 13, 2018 CT scan abdomen and pelvis FINDINGS: The visualized lung bases are unremarkable. The visualized portions of the heart are within normal limits. There is decreased attenuation of the liver consistent with steatosis. Normal gallbladder and extrahepatic biliary system. Normal spleen. Normal pancreas. Normal bilateral adrenal glands. Normal right kidney. There is a small cyst left kidney measuring 1.2 cm not seen on the prior noncontrasted study. Hounsfield units in the range of fluid. Contrast is present within the stomach. At the time of this study there is a partly fluid partly contrasted filled appearance of the stomach. Normal small intestine. Within the descending colon/proximal sigmoid there is a visualized 5 cm segment of wall thickening and stranding in the small focus of possible early developing phlegmonous inflammation adjacent to the cranial portion of the colon. This is in the setting of several diverticula within the distal descending colon at this level. There is no visualized free air. The appendix is visualized and appears normal. There is partial calcification of the infrarenal aorta. Normal inferior vena cava. Normal retroperitoneum. The bladder is partially decompressed the wall is thickened. Normal visualized prostate gland. Normal abdominal wall. There is a visualized spinal fusion from the level of L4 to the sacrum. There are disc spacers present at L4-L5 and L5-S1. There has been a laminectomy at the level of L5-S1. There has been a right hip arthroplasty. CT/Abdomen/Pelvis WITH Contrast IMPRESSION: Findings are suspicious for a 5 cm segment inflammation, acute diverticulitis within the descending colon/sigmoid within the mid pelvis. There is a focus of inflammatory change which may be around a focal inflamed diverticula versus a small focus of early developing phlegmonous focus measuring 1.2 x 1.5 cm. There is no visualized free air or obvious microleak. Decompressed mildly thick-walled appearance of the bladder could consider cystitis. Degenerative change of the thoracolumbar spine. Status post spinal fusion L3-S1. Mild hepatic steatosis. Status post right hip arthroplasty. Electronically Signed: Yanique Travis MD at 16:43 EDT ,
[2022-11-30 14:38] LABS: CREATININE FINGERSTICK 1.3 mg/dL (0.70-1.30)
[2022-11-30 15:08] LABS: Absolute Lymphocyte Count 2.07 X10^3/uL (0.83-4.51); Absolute Neutrophil Count 2.3 X10^3/uL (2.0-7.7); Basophil# 0.04 X10^3/uL; Basophil% 0.8 % (0-1); Eosinophil# 0.12 X10^3/uL; Eosinophils% 2.4 % (0-5); Hematocrit 44.2 % (40-54); Hemoglobin 13.8 g/dL (13.0-16.5); Lymphocyte # 2.07 X10^3/ul (0.83-4.51); Lymphocyte % 41.6 % (19-41); Mean Corp Hgb Conc 31.2 g/dL (32-36); Mean Corpuscular Hgb 29.2 pg (27.0-32.0); Mean Corpuscular Volume 93.6 fL (80-94); Mean Platelet Vol. 11.1 fl (6.2-12.0); Monocyte# 0.44 X10^3/uL; Monocyte% 8.8 % (0-10); NRBC Flagged by Analyzer 0 % (0-5); Neutrophil % 46.2 % (47-70); Platelet Count 252 K/mm3 (150-450); RBC Distribution Width CV 13.7 % (11.6-14.6); RBC Distribution Width SD 46.5 fl (35.1-43.9); Red Blood Count 4.72 M/mm3 (4.6-6.2)
[2022-11-30 15:25] LABS: ALB/GLOB Ratio 0.8 RATIO (0.9-2.4); AST(SGOT) 16 U/L (15-37); Alanine Aminotransfer ALT/SGPT 36 U/L (16-61); Albumin, Serum 3.3 g/dL (3.2-5.0); Alkaline Phosphatase 52 U/L (45-117); Anion Gap 6 (5-15); BUN 15 mg/dL (7-18); BUN/Creat Ratio 15.7 RATIO (10-20); Calcium,Total 8.8 mg/dL (8.5-10.1); Chloride 102 mmol/L (98-107); Creatinine, Serum 0.96 mg/dL (0.70-1.30); EST Glomerular Filtration Rate 88 mL/min (>60); Est Glom Filt Rate - Afr Amer 107 mL/min (>60); Globulin 4.1 g/dL (2.2-4.2); Glucose 92 mg/dL (74-106); Lipase 37 U/L (13-75); Potassium 4.2 mmol/L (3.5-5.1); Protein, Total 7.4 g/dL (6.4-8.2); Sodium Level 136 mmol/L (136-145)
== END | disposition home or self-care (01) ==
PROVIDERS: PCP Family Medicine; Referring Provider Surgery; Visit Provider Surgery
DX: K62.5 Hemorrhage of anus and rectum (principal); R10.9 Unspecified abdominal pain; R19.8 Other specified symptoms and signs involving the digestive system and abdomen
CPT/HCPCS: 74177; 80053; 83690; 85025; Q9967; A4216

== ENCOUNTER 2023-06-07 05:27 | Day surgery (SDC) | payer OTHER, SELFPAY ==
--- OUTSIDE RECORDS SUMMARY | 2023-06-07 05:31 | XMS RPT_ITS | CCD ---
Author Name Unknown Address [address] [place] [address] Organization [facility] Care Team Providers Care Geology Scientist Name Role Phone LUCILA FELIZ MD Admitting Unavailable FRANCISCO SAWANT CNP Consulting Unavailable LUCILA FELIZ MD Primary Care Unavailable LUCILA FELIZ MD Attending Unavailable FRANCISCO SAWANT CNP Referring Unavailable PROVIDER, UNKNOWN Consulting Unavailable PROVIDER, UNKNOWN Consulting Unavailable FRANCISCO SAWANT CNP Consulting Unavailable MILLY KIRK Admitting Unavailable MILLY KIRK Primary Care Unavailable MILLY KIRK Attending Unavailable PROVIDER, UNKNOWN Consulting Unavailable PROVIDER, UNKNOWN Consulting Unavailable NELSON SKY DO Admitting Unavailable NELSON SKY DO Primary Care Unavailable NELSON SKY DO Attending Unavailable FRANCISCO SAWANT CNP Consulting Unavailable FRANCISCO SAWANT CNP Referring Unavailable PROVIDER, UNKNOWN Consulting Unavailable PROVIDER, UNKNOWN Consulting Unavailable RANDOLPH LEONARD Primary Care Unavailable JUSTINO CALVO Attending Unavaila MILLY Hou Referring Unavailable MILLY KIRK Admitting Unavailable Randolph Leonard CNP Primary Care Provider Medications Current Medications Medication Drug Class(es) Dates Sig (Normalized) Sig (Original) atorvastatin 20 mg oral tablet (1 source) HMG-CoA Reductase Inhibitor take 1 tablet by mouth once daily atorvastatin (LIPITOR) 20 MG tablet Take 1 (one) tablet (20 mg total) by mouth daily . 0 Active fluticasone furoate 0.0275 mg/actuat metered dose nasal spray (1 source) Corticosteroid Start: 05-02-2023 Children's Flonase Sensimist 27.5 mcg/actuation nasal spray 2 (two) sprays by Each Nare route daily . 0 05/02/2023 Active hydrocortisone 25 mg/ml topical cream (1 source) Corticosteroid Start: 05-21-2023 hydrocortisone 2.5 % cream Problems Active Problems Problem Classification Problem Date Documented Date Episodic/Chronic Conditions associated with dizziness or vertigo (1 source) Labyrinthitis of left inner ear; Translations: [Labyrinthitis, left ear] 05-25-2023 Episodic Disorders of lipid metabolism (1 source) Mixed hyperlipidemia; Translations: [Mixed hyperlipidemia] Onset: 06-17-2022 Chronic Fever of unknown origin (2 sources) Fever, unspecified; Translations: [Fever, unspecified] Onset: 01-24-2023 Episodic Other circulatory disease (1 source) Arteritis, unspecified; Translations: [Arteritis, unspecified] Onset: 01-24-2023 Chronic Other ear and sense organ disorders (1 source) Hearing loss Onset: 05-23-2023 Chronic Past or Other Problems Problem Classification Problem Date Documented Da te Episodic/Chronic Other screening for suspected conditions (not mental disorders or infectious disease) (1 source) Encounter for screening for diabetes mellitus; Translations: [Encounter for screening for diabetes mellitus] Onset: 06-17-2022 Episodic Residual codes; unclassified (1 source) Family history of malignant neoplasm of prostate; Translations: [Family history of malignant neoplasm of prostate] Onset: 06-17-2022 Episodic Results Test Name Value Interpretation Reference Range Facil ity Vital Signs Date Time Vital Sign Value Performing Clinician Faci lity 05-23-2023 12:53-0500 Diastolic blood pressure 90 mm[Hg] Justino Calvo MD Work Phone: [facility] 05-23-2023 12:53-0500 Heart rate 67 /min Justino Calvo MD Work Phone: [facility] 05-23-2023 12:53-0500 SaO2% (BldA) [Mass fraction] 94 % Justino Calvo MD Work Phone: [facility] 05-23-2023 12:53-0500 Systolic blood pressure 138 mm[Hg] Justino Calvo MD Work Phone: [facility] Encounters Encounter Date Encounter Type Care Provider Facility Start: 05-23-2023 End: 05-23-2023 ambulatory [facility] Start: 05-23-2023 End: 05-23-2023 Office outpatient new 60 minutes Milly Kirk MD Work Phone: [facility] Procedures Date Procedure Procedure Detail Performing Clinician Start: 03-04-2023 MRI Justino Calvo MD Work Phone: Start: 01-24-2023 Urinalysis LUCILA VILLATORO SEAN Plan of Treatment Date Care Activity Detail Author Start: 08-22-2023 End: 08-22-2023 Patient encounter procedure 08/22/2023 2:00 PM EDT Office Visit [facility] [address], [address] [place] [address] Justino Calvo MD [address] [place] [address] [facility] Start: 12-03-2022 COVID-19 Vaccine ( season) COVID-19 Vaccine ( season) [facility] Start: 12-03-2022 Influenza vaccination Sequential Influenza Vaccine (#1) [facility] Start: 2022 Administration of herpes zoster vaccine Zoster Vaccines (1 of 2) [facility] Start: 2022 Screening for malignant neoplasm of colon Flexible sigmoidoscopy [facility] Start: 1990 Hepatitis C screening Hepatitis C Screening [facility] Start: 1987 HIV screening HIV Screening [facility] Start: 1984 Depression screening using PHQ-9 (Patient Health Questionnaire 9) score Depression Screening (PHQ-2/9) [facility] Start: 1975 History and physical examination, annual for health maintenance Wellness Visit [facility] Start: 1972 Prostate specific antigen measurement PSA Level [facility] Start: 1972 Screening for malignant neoplasm of colon [facility] Start: 1972 Tetanus vaccination Tetanus: Every 10yrs [facility] Payers Date Payer Category Payer Unknown [id number] 2021 Unknown [employer] PPO [id number] 2021-Present [phone] [address] [place] [address] [id number] 1970 Unknown [id number] 1970 Unknown [id number] 1970 Unknown [id number] 1970 Unknown [id number] Social History Date Type Detail Facility Start: 05-23-2023 Tobacco smoking status NHIS Never sm oked tobacco [facility] Start: 05-23-2023 Tobacco use and exposure Smokeless t obacco non-user [facility] Start: 05-23-2023 Alcohol intake Current drinke r of alcohol (finding) [facility] Start: 05-23-2023 Alcohol Comment social [facility] Start: 1970 Sex Assigned At Not on file [facility] Gender identity Not on file [facility] History of Present illness Narrative 05-23-2023 Justino Calvo MD - 05/23/2023 1:14 PM EST Note Date & Type Note Facility 05-23-2023 History of Presen t illness Narrative Formatting of this note is different fro m the original. Images from the original note were not included. New Patient Visit [facility] [address], [address], [place] [address] (office) Date of service: 05/25/2023 ID: Haseeb Hadley, 53 y.o., male; : 1970 Chief Concerns and reason for consult: Haseeb Hadley is a 53 y.o. man who comes for consultation regarding Hearing Loss (Patient unsure why he is here. Has been to Urgent Care and hospitals, Rheumotology,ENT./Had episode with feet twice: Edema and turning color to inner thighs, took steroids and symptoms went away ./They have been told many different diagnosis. Energy is lower.) History of Present Illness: Mr. Hadley presents for evaluation of multiple symptoms as well as for MRI brain findings, after he was evaluated by multiple physicians including ENT physician as well as personal financial representative. Timeline of his symptoms are as follows. Summer 2022- not sure if related but was bitten by something, likely insect, in [place] - three small maculopapular swelling on abodmen, . A few days after developed fever, constipation, abdominal pain, fatigue went to the hospital. Thought it was diverticulitis, like he has had before, but the hospital thought it might just be the flu and was discharged. January 2023 - In [place], developed a high fever, felt like he could not get out of bed, bad chills, went to urgent care, received two shots for some sort of infection , was given amoxicillin. Still had high grade fevers. Then he went to the ER, did a blood draw. Amoxicillin was discontinued, and the patient was started on IV fluids, and the patient was discharged. - Went to a hotel room, pillows, bed sheet was drenched, and he started feeling better. Came back to [place], was recovering well. Two days days later,Tuesday, his bilateral feet started hurting while watching a football game, and at the time he did not wish to partake in some of the games as he did not want to stand. On the following day, Tuesday he woke up and R>L leg were swollen in distal half of legs and feet, very painful, swollen, red/purplish, and spots at the back of calves, thigh. He presented to a [facility], and was admitted. He reports that no clear diagnosis was reached at the time. Due to the diagnostic uncertainty, he was accepted for transfer to [facility], was placed on Dilaudid for pain, and steroids were given, while he was waiting for a bed to open up. At the same time he was started on Prednisone. Around 16 hours after steroids was started, symptoms significantly improved. He was discharged on , with a Medrol dosepak. [place] like he was back to his baseline. Thought it was vasculitis , but subsequently personal financial representative thought it wasn't. Reports that his left ear had hearing loss that started around then. Subsequently had some loss when he went to ENT, but feels like it has improved since. Reports reports that he also had a week fo intermittent transient vertigo, and tinnitus, although it is unclear if the hearing loss started around the same.. In March 2023 MRI brain was performed. April 2023, reportedly had onset of mild leg pain that was starting. He immediately reached out to an urgent care center and had a Medrol Dosepak prescribed due to based on previous improvement,, which caused resolution of symptoms immediately. He reports that occasionally during eating or drinking- sometimes breaks into a sweat. Other than that for most part he is back to his baseline and has no flareup of his symptoms. Neurological ROS: negative for - behavioral changes, bowel and bladder control changes, confusion, dizziness, gait disturbance, headaches, impaired coordination/balance, seizures, speech problems, tremors, visual changes, or weakness Review of Systems: Comments Neurological As above General/constitutional No fevers, weight change Skin No current rash HEENT No diplopia, dysphagia, dizziness, tinnitus, hearing loss Cardiovascular No dyspnea or chest pain Respiratory No SOB Gastrointestinal No loss of bowel control Genitourinary No loss of bladder control or sexual dysfunction Musculoskeletal No myalgias Psychiatric No depression Endocrine No changes to hair or nails Hematologic No easy bruising or bleeding Past medical history: has a past medical history of Cancer (HCC), Hyperlipidemia, and Seizures (HCC). Past surgical history: has no past surgical history on file. Social history: reports that he has never smoked. He has never used smokeless tobacco. He reports current alcohol use. He reports that he does not use drugs. Family history:family history is not on file. Medications: Current Outpatient Medications: atorvastatin (LIPITOR) 20 MG tablet, Take 1 (one) tablet (20 mg total) by mouth daily ., Disp: , Rfl: Children's Flonase Sensimist 27.5 mcg/actuation nasal spray, 2 (two) sprays by Each Nare route daily ., Disp: , Rfl: hydrocortisone 2.5 % cream, , Disp: , Rfl: Allergies: No Known Allergies Physical Examination: Vitals signs :His blood pressure is 138/90 (abnormal) and his pulse is 67. His oxygen saturation is 94%. GENERAL EXAM: The patient is in no apparent distress. Head - normocephalic, atraumatic RESP: normal respiratory effort, no use of accessory muscles for respiration SKIN: No bruising MSK: No bony anomalies CV: Pulse regular; BP as above; Neurological Examination Mental status: awake and alert; oriented to person, place, year, and month; good attention. Normal mood and affect. Normal insight into condition. Speech/language: fluent; comprehension intact; object naming intact; repetition intact Cranial nerves: CN II: Visual duncan intact to confrontation. PERRL. Normal conjunctivae and lids. 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 No nystagmus. CN V: Facial sensation is intact to light touch. CN VII: Facial strength normal with symmetric movement. CN VIII: Hearing is grossly intact. CN IX and X: Soft palate elevates symmetrically in the midline CN XI: Shoulder shrug and sternocleidomastoid strength (R/L) 5/5 CN XII: Tongue is midline with normal movement; no fasciculations. Motor: Normal bulk and tone. No pronator drift. SA EE EF WE WF DI HF KE KF DF PF Right 5 5 5 5 5 5 5 5 5 5 5 Left 5 5 5 5 5 5 5 5 5 5 5 Reflexes: Right Left Comments Biceps 2 2 Triceps 2 2 Brachioradialis 2 2 Patellar 2 2 Achilles 2 2 Babinski Down Down Coordination: [id number] intact bilaterally. Sensation: Comments Light touch Intact throughout Vibration Intact throughout Temperature proprioception Intact Gait: Normal stride length, arm swing, and base width. Negative Romberg. Review of images/other data: MRI brain Extensive rheumatologic workup results in media file reviewed Assessment:/Plan: Haseeb Hadley is a 53 y.o. male with a history of relatively recent onset of multiple symptoms that have been worked up by multiple specialists. He was referred for evaluation of hearing loss. The patient reports that somewhere around January 2023, shortly after he had the onset of a series of events as described above in body of report, he had onset of left-sided hearing loss accompanied by transient episodic vertigo. He also describes some tinnitus. While the description of vertigo, namely a few seconds of acute vertigo provoked by change in head movement, raises suspicion for BPPV, the presence of unilateral hearing loss as well as tinnitus raises concern for possible episode of M ni re's disease, however it has not been nearly episodic enough to fulfill criteria, and the episodes were much shorter than typical M ni re's related vertigo. The postinfectious timing of the symptoms also make labyrinthitis a potential etiology for his symptoms, and this would explain the monophasic nature of his hearing loss. Other possible causes include antibiotic related toxicity, although it is unclear if the patient received any aminoglycoside or other ototoxic antibiotics. While MRI brain revealed multiple areas of contact between blood vessels and cranial nerves, the progression of events since then, makes neurovascular compression less likely etiology for his symptoms. Reported thinning of the bilateral arcuate eminence, suspicious for dehiscence , is likely an incidental finding. Superior semicircular canal dehiscence syndrome is typically not a monophasic condition, and hence is unlikely. The single focus of signal normality in the right parietal lobe is likely nonspecific white matter changes, and would not explain his symptoms. With regards to his lower extremity pain/swelling/redness along with rapid response to steroids, this is being worked up by rheumatology. Thus far no clear etiology has been reviewed even after extensive lab testing. Diagnosis:The encounter diagnosis was Labyrinthitis of left ear. Follow up: Return in about 3 months (around 08/21/2023). Justino Calvo MD Wink Cutter Operator Neurologist [facility]. documented in this encounter [facility] Clinical Note 02-01-2023 Note Date & Type Note Facility 02-01-2023 Note . MICRO - Microbiology PROCEDURE: Blood Culture (bacterial) [*1] SOURCE: Blood BODY SITE: COLLECTED DATE/TIME: 01/27/2023 14:00 EDT RECEIVED DATE/TIME: 01/27/2023 18:30 EDT START DATE/TIME: 01/27/2023 18:30 EDT FREE TEXT SOURCE: FINAL REPORTS Final Report [] Verified Date/Time/Personnel: 02/01/2023 18:59 EDT Blood Culture: No Growth at 5 days. PRELIMINARY REPORTS Preliminary Report [] Verified Date/Time/Personnel: 01/27/2023 19:59 EDT Culture has been received in lab and is no growth to date. Routine cultures are held for 5 days. Performing Locations *1: This test was performed at: [facility], [address] [place] [address], [facility] , Pending sale to [facility] ([place]) Clinical Note 02-01-2023 Note Date & Type Note Facility 02-01-2023 Note . MICRO - Microbiology PROCEDURE: Blood Culture (bacterial) [*1] SOURCE: Blood BODY SITE: COLLECTED DATE/TIME: 01/27/2023 13:35 EDT RECEIVED DATE/TIME: 01/27/2023 18:31 EDT START DATE/TIME: 01/27/2023 18:31 EDT FREE TEXT SOURCE: FINAL REPORTS Final Report [] Verified Date/Time/Personnel: 02/01/2023 18:59 EDT Blood Culture: No Growth at 5 days. PRELIMINARY REPORTS Preliminary Report [] Verified Date/Time/Personnel: 01/27/2023 19:59 EDT Culture has been received in lab and is no growth to date. Routine cultures are held for 5 days. Performing Locations *1: This test was performed at: [address], [address] [place] [address] ([place]) Progress note 04-18-2020 Note Date & Type Note Facility 04-18-2020 Note HNO ID: [id number] Author: Meagan Johnson Cnp) Cherelle Service: ? Author Type: Nurse Practitioner Type: Progress Notes Filed: 04/18/2020 9:39 AM Note Text: NEUROSURGERY FOLLOW UP OFFICE NOTE Meagan Villarreal APRN.[employer] VICE PRESIDENT Alberto Carney MD Date of visit: April 18, 2020 Patient Name: Mr.Jerry Lena Hadley Date of : 1970 Current Age: [age] year old Sex: male MRN/E# [id number] Last Office Visit: September 11, 2019 Chief Complaint: Patient presents with: Established Patient SUBJECTIVE: Mr. Hadley presents to the office today for a follow up visit with imaging for evaluation of low back pain. He was last seen on 09/11/2019 for a virtual visit due to COVID-19. He noted overall improvement of his low back pain and lower extremity symptoms. He described generalized weakness in the lower extremities and difficult with bending and lifting. It was recommended that he participate in a course of physical therapy and follow up in 3-4 months. Today he states the muscles in his low back and calves seem worse. He has been unable to participate in physical therapy due to insurance issue. He continues to feel that his legs are week. He presents for evaluation and plan of care. 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 - atorvastatin (LIPITOR) 20 mg tablet Take 20 mg by mouth once daily. - gabapentin (NEURONTIN) 300 mg capsule Take 2 capsules by mouth three times daily for 30 days. 180 capsule 1 No current facility-administered medications for this visit. REVIEW OF SYSTEMS Review of Systems Constitutional: Negative for chills, diaphoresis (Negative for night sweats.) and fever. HENT: Negative for ear discharge and rhinorrhea. Eyes: Negative for discharge. Respiratory: Negative for cough, shortness of breath and wheezing. Cardiovascular: Negative for chest pain, palpitations and leg swelling. Gastrointestinal: Negative for constipation, diarrhea, nausea and vomiting. Endocrine: Negative for cold intolerance and heat intolerance. Genitourinary: Negative for frequency. Negative for urinary incontinence and urinary retention. Musculoskeletal: Positive for back pain and gait problem. Negative for joint swelling, myalgias and neck pain. Skin: Negative for rash (Negative for hives and skin lesions.). Allergic/Immunologic: Negative for environmental allergies and food allergies. Negative for contact allergy, seasonal allergies. Neurological: Positive for weakness and numbness (Negative for numbness in extremities.). Negative for dizziness, seizures, syncope, light-headedness and headaches. Hematological: Does not bruise/bleed easily. Psychiatric/Behavioral: Agitation: .phy. The patient is not nervous/anxious. Negative for depression. OBJECTIVE: BP 137/96 Pulse 79 Temp 97.3 Resp 18 Ht 5' 9 (1.75m) Wt 245 lb (111.1kg) SpO2 99% BMI 36.16 kg/(m2). PHYSICAL EXAM: Mental State : Alert, memory function unremarkable. Attention span and concentration normal for patient's age. Speech normal, no receptive or expressive speech deficit. Recent and remote memory normal. Orientation : Oriented to person, place and time. Higher Cortical Function : Intact speech and language. Spontaneous speech and comprehension normal. Fund of knowledge intact for pt level of education. Cranial Nerves : II: No visual field cut no blurring, Makes and sustains eye contact III, IV, : Normal, no double vision or drooping. Pupils equal and reactive to light. Extraocular muscles intact. No nystagmus V: Normal sensation on the face, normal jaw movements VII: No paresis on either side VIII: No gross hearing deficit IX: Good and equal shoulder shrugs XII: Tongue midline, no fasciculations Sensory: Normal Sensation in upper and lower extremities and trunk to touch and noxious stimuli. Motor: Normal muscle tone and bulk. No tremor or uncontrollable movements. No spasticity or tremor. Strength: Upper Extremities : R L Del (more content not included)... [facility] Progress note 04-18-2020 Note Date & Type Note Facility 04-18-2020 Note HNO ID: [id number] Author: Mayra MñuozRt) John Arredondo Service: Radiology Author Type: Cosmetic Dentist Type: Progress Notes Filed: 04/18/2020 9:28 AM Note Text: Radiology Service Progress Note PATIENT NAME: Haseeb Hadley DATE OF SERVICE: April 18, 2020 TIME: 9:28 AM PATIENT IDENTITY VERIFICATION COMPLETED USING TWO (2) IDENTIFIERS: Name and Date of confirmed by patient verbally. FALL SCREENING: Has the patient had 2 falls in the last year or 1 fall with injury or currently using an Ambulatory Assistive Device (Walker, Cane, Wheelchair, Crutches, etc.)? No PATIENT GENDER DATA: Male PATIENT RELEVANT IMPLANT DATA REVIEWED: Not Applicable RADIOLOGY DEPARTMENT: General X-ray: Exam(s) Completed: Spine X-Ray(s): Lumbar AP / LAT / L5-S1 PERIPHERAL IV DATA: Not applicable SIGNED BY: RT Cirilo April 18, 2020 9:28 AM [facility] Evaluation note Note Date & Type Note Facility documented in this encounter [facility] Summary Purpose Family History No Family History Records FoundNo Family History Records FoundNo Family History Records FoundNo Family History Records FoundNo Family History Records FoundNo Family History Records FoundNo Family History Records FoundNo Family History Records Found Advance Directives No Advanced Directives Records FoundNo Advanced Directives Records FoundNo Advanced Directives Records FoundNo Advanced Directives Records FoundNo Advanced Directives Records FoundNo Advanced Directives Records FoundNo Advanced Directives Records FoundNo Advanced Directives Records Found Additional Source Comments (unrecognized sect ion and content) No Status Records FoundNo Status Records FoundNo Status Records FoundNo Status Records FoundNo Status Records FoundNo Status Records FoundNo Status Records FoundNo Status Records Found INFORMATION SOURCE (unrecogn ized section and content) DATE CREATED AUTHOR AUTHOR'S ORGANIZ ATION 01/16/2019 [facility] DATE CREATED AUTHOR AUTHOR'S ORGANIZ ATION 11/05/2020 [facility] DATE CREATED AUTHOR AUTHOR'S ORGANIZ ATION 11/06/2020 [facility] DATE CREATED AUTHOR AUTHOR'S ORGANIZ ATION 07/18/2021 [facility] DATE CREATED AUTHOR AUTHOR'S ORGANIZ ATION 02/03/2023 [facility] DATE CREATED AUTHOR AUTHOR'S ORGANIZ ATION [facility]2023 [facility] DATE CREATED AUTHOR AUTHOR'S ORGANIZ ATION 05/24/2023 [facility] Reason for Visit (unrecogniz ed section and content) Specialty Diagnoses / Procedures Referred By Contac t Referred To Contact Neurology Diagnoses Hearing loss, unspecified hearing loss type, unspecified laterality Milly Kirk MD [address] [place] [address] Krishan Monroe MD [address] [facility] [address] [address] Referral ID Status Reason Start Date Expiration Date Visits Re quested Visits Authorized [id number] Closed 03/18/2023 03/17/2024 1 1 Care Teams (unrecognized sec tion and content) FOR RECORDS PERTAINING TO PATIENTS WHO ARE OR HAVE BEEN ENROLLED IN A CHEMICAL DEPENDENCY/SUBSTANCEABUSE PROGRAM, SOME INFORMATION MAY BE OMITTED. This clinical summary was aggregated from multiple sources. Caution should be exercised in using it in the provision of clinical care. This summary normalizes information from multiple sources, and as a consequence, information in this document may materially change the coding, format and clinical context of patient data. In addition, data may be omitted in some cases. CLINICAL DECISIONS SHOULD BE BASED ON THE PRIMARY CLINICAL RECORDS. [facility]. provides no warranty or guarantee of the accuracy or completeness of information in this document.
--- NOTE | 2023-06-07 05:46 | PCM.HP.BLA ---
History and Physical Date of Admission: 06/07/23 Visit Reasons: F/U Diverticulitis Chief Complaint: f/u divericulitis Audiovisual Technician Required: No Is patient in pain?: No Allergies No Known Allergies Allergy (Verified 01/03/23 13:08) Medications magnesium oxide 500 mg tablet 500 mg PO QHS 04/03/20 [History Confirmed 05/06/20] atorvastatin 20 mg tablet mg PO 01/03/23 [History Confirmed 01/03/23] PFSH Medical History Diverticulitis Esophageal obstruction due to food impaction Gastritis GERD with esophagitis High cholesterol HTN (hypertension) Personal history of colonic polyps Rectal bleeding Surgical History H/O microdiscectomy History of colonoscopy (~01/2019) History of esophagogastroduodenoscopy (EGD) (~01/2019) Family History Father Cancer Social History Smoking Status: Current some day smoker alcohol intake: current alcohol intake frequency: a few times a month HPI HPI HPI: 52-year-old gentleman. I have most recently seen him on November 29, 2022. His concern at that time was rectal bleeding and acute severe abdominal pain. As an outpatient on November 30, 2022 the patient had an abdominal pelvic CT scan. I have personally reviewed those images. The findings were felt to be consistent with acute diverticulitis. Dr. Cortez Orellana assisted with changing the patient to clear liquid diet and initiating him on appropriate antibiotic therapy of ciprofloxacin and metronidazole. At my initial appointment I had also recommended the patient a colonoscopy. As of yet we have not pursued that. Patient states that with clear liquids and antibiotics he resolved pretty quickly. On today's visit he does note that 5 years ago he had had a previous bout of diverticulitis. He also admits that he loves to eat almonds and literally has almonds on a daily basis. He does not know whether there is any correlation with that in his bout of diverticulitis. On today's visit however he is feeling quite well. The abdominal pain and rectal bleeding has ceased November 30, [address] Yanique Travis MD on 11/30/22 at 1701 ADDENDUM Cortez Orellana was over the horizon targeting supervisor for these findings were called to Dr. Orellana on a stat basis at 4:59 PM Eastern standard time 11/30/2022. Electronically Signed: Yanique Travis MD at 17:01 EDT Reading Location ID and State: [facility] / [place] Tel , Service support , N.B. : The above Results were Read Back by Yanique Travis MD to Cortez Orellana MD, and understanding confirmed on 11/30/2022 16:59:52 (ET). Signed ADDENDUM by Dr. Yanique Travis MD on 11/30/22 at 1643 STUDY: CT ABDOMEN AND PELVIS WITH CONTRAST REASON FOR EXAM: Male, 52 years old. Abdominal pain, acute bowel changes RADIATION DOSAGE (If Supplied By Facility): CTDIvol = ( 21.18 ) mGy, DLP = ( 1725.45 ) mGycm TECHNIQUE: Transaxial images were obtained from the dome of the diaphragm to the symphysis pubis without oral contrast. Oral and amp; IV Readi-CAT and amp; 100mL Isovue-300 was administered. Sagittal and coronal images were reconstructed. Individualized dose optimization techniques were used for this CT. COMPARISON: June 13, 2018 CT scan abdomen and pelvis FINDINGS: The visualized lung bases are unremarkable. The visualized portions of the heart are within normal limits. There is decreased attenuation of the liver consistent with steatosis. Normal gallbladder and extrahepatic biliary system. Normal spleen. Normal pancreas. Normal bilateral adrenal glands. Normal right kidney. There is a small cyst left kidney measuring 1.2 cm not seen on the prior noncontrasted study. Hounsfield units in the range of fluid. Contrast is present within the stomach. At the time of this study there is a partly fluid partly contrasted filled appearance of the stomach. Normal small intestine. Within the descending colon/proximal sigmoid there is a visualized 5 cm segment of wall thickening and stranding in the small focus of possible early developing phlegmonous inflammation adjacent to the cranial portion of the colon. This is in the setting of several diverticula within the distal descending colon at this level. There is no visualized free air. The appendix is visualized and appears normal. There is partial calcification of the infrarenal aorta. Normal inferior vena cava. Normal retroperitoneum. The bladder is partially decompressed the wall is thickened. Normal visualized prostate gland. Normal abdominal wall. There is a visualized spinal fusion from the level of L4 to the sacrum. There are disc spacers present at L4-L5 and L5-S1. There has been a laminectomy at the level of L5-S1. There has been a right hip arthroplasty. Signed ADDENDUM by Dr. Yanique Travis MD on 11/30/[address]/Abdomen/Pelvis WITH Contrast IMPRESSION: undefined cc: Dr. Rhiannon Obrien DO; Dr. Vasquez Cortes MD ~* Signed ADDENDUM by Dr. Yanique Travis MD on 11/30/[address]/Abdomen/Pelvis WITH Contrast IMPRESSION: Findings are suspicious for a 5 cm segment inflammation, acute diverticulitis within the descending colon/sigmoid within the mid pelvis. There is a focus of inflammatory change which may be around a focal inflamed diverticula versus a small focus of early developing phlegmonous focus measuring 1.2 x 1.5 cm. There is no visualized free air or obvious microleak. Decompressed mildly thick-walled appearance of the bladder could consider cystitis. Degenerative change of the thoracolumbar spine. Status post spinal fusion L3-S1. Mild hepatic steatosis. Status post right hip arthroplasty. N.B. : The above Results were Read Back by Yanique Travis MD to Cortez Orellana MD, and understanding confirmed on 11/30/2022 16:59:52 (ET). Electronically Signed: Yanique Travis MD at 16:43 EDT , Signed We are attempting to reach an attending provider to discuss findings. An addendum with communication details will be sent when the communication is complete. STUDY: CT ABDOMEN AND PELVIS WITH CONTRAST REASON FOR EXAM: Male, 52 years old. Abdominal pain, acute bowel changes RADIATION DOSAGE (If Supplied By Facility): CTDIvol = ( 21.18 ) mGy, DLP = ( 1725.45 ) mGycm TECHNIQUE: Transaxial images were obtained from the dome of the diaphragm to the symphysis pubis without oral contrast. Oral and amp; IV Readi-CAT and amp; 100mL Isovue-300 was administered. Sagittal and coronal images were reconstructed. Individualized dose optimization techniques were used for this CT. COMPARISON: June 13, 2018 CT scan abdomen and pelvis FINDINGS: The visualized lung bases are unremarkable. The visualized portions of the heart are within normal limits. There is decreased attenuation of the liver consistent with steatosis. Normal gallbladder and extrahepatic biliary system. Normal spleen. Normal pancreas. Normal bilateral adrenal glands. Normal right kidney. There is a small cyst left kidney measuring 1.2 cm not seen on the prior noncontrasted study. Hounsfield units in the range of fluid. Contrast is present within the stomach. At the time of this study there is a partly fluid partly contrasted filled appearance of the stomach. Normal small intestine. Within the descending colon/proximal sigmoid there is a visualized 5 cm segment of wall thickening and stranding in the small focus of possible early developing phlegmonous inflammation adjacent to the cranial portion of the colon. This is in the setting of several diverticula within the distal descending colon at this level. There is no visualized free air. The appendix is visualized and appears normal. There is partial calcification of the infrarenal aorta. Normal inferior vena cava. Normal retroperitoneum. The bladder is partially decompressed the wall is thickened. Normal visualized prostate gland. Normal abdominal wall. There is a visualized spinal fusion from the level of L4 to the sacrum. There are disc spacers present at L4-L5 and L5-S1. There has been a laminectomy at the level of L5-S1. There has been a right hip arthroplasty. CT/Abdomen/Pelvis WITH Contrast IMPRESSION: Findings are suspicious for a 5 cm segment inflammation, acute diverticulitis within the descending colon/sigmoid within the mid pelvis. There is a focus of inflammatory change which may be around a focal inflamed diverticula versus a small focus of early developing phlegmonous focus measuring 1.2 x 1.5 cm. There is no visualized free air or obvious microleak. Decompressed mildly thick-walled appearance of the bladder could consider cystitis. Degenerative change of the thoracolumbar spine. Status post spinal fusion L3-S1. Mild hepatic steatosis. Status post right hip arthroplasty. Electronically Signed: Yanique Travis MD at 16:43 EDT Reading Location ID and State: [facility] / [place] Tel , Service support , My previous notes reflect the following Visit Reasons: S/R CHANGE IN BOWEL HABITS Allergies No Known Allergies Allergy (Verified 05/06/20 07:03) [facility] Medical History (Updated 11/29/22 @ 13:[address] Vasquez Cortes MD) Diverticulitis Esophageal obstruction due to food impaction Gastritis GERD with esophagitis High cholesterol HTN (hypertension) Personal history of colonic polyps Rectal bleeding Surgical History (Updated 05/06/20 @ 08:[address] Vasquez Cortes MD) H/O microdiscectomy History of colonoscopy (~01/2019) History of esophagogastroduodenoscopy (EGD) (~01/2019) Family History Father Cancer Social History (Updated 04/03/20 @ 07:[address] Vasquez Cortes MD) Smoking Status: Current some day smoker alcohol intake: current alcohol intake frequency: a few times a month HPI HPI HPI: 60-year-old gentleman presents because of a concern about change in bowel habits. On May 06, 2020 because of a personal history of colon polyps I performed a colonoscopy. Hemorrhoids were identified and diverticulosis. No additional polyps were identified. Previously July 28, 2018 I performed an upper and lower endoscopy. Lower endoscopy was notable for a mid descending colon polyp that required a saline lift and hot snare resection with clip placement for 10 mm polyp which which was a tubulovillous adenoma. In the distal descending colon a 13 mm polyp was identified and a Endoloop was placed and then a hemostatic clip after the resection as well and that demonstrated tubulovillous adenoma with focal changes consistent with an inflammatory polyp. There was additional sigmoid polyp 5 mm that showed fragments of serrated adenoma and mixed hyperplastic and tubular adenoma. 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 He had gained quite a bit of weight. Several months back he went on a fasting program taking supplements prescribed by physicians and he unsure of what they were. Lost 23 pounds in weight. But approximately 2 and half weeks ago he developed severe acute constipation was not able to move his bowels. For 3 or 4 days he started taking Duca locks then he had rectal bleeding. He was at [place] at the time and claims he went to the emergency room. He simply claims he got an abdominal x-ray and some lab work and told him to follow through when he returned home. Apparently they did check his stool for blood and it was positive. He is continued not to feel right. He is moving his bowels but not like he was before. He notes kind of a diffuse nondescript mid abdominal pain. There is been no nausea or vomiting. He is no longer on the dietary supplements. ROS General General: Yes fatigue; No weight change, appetite, colon cancer, breast cancer or weakness HEENT HEENT: No difficulty swallowing, eye injury, eye surgery, swollen glands or hoarseness Endo Endocrine: No thyroid disease, diabetes mellitus, thyroid cancer, Hair loss, heat intolerance or cold intolerance Skin Skin: No rash or changing moles Breast Breast: No left breast lump, right breast lump, nipple discharge, breast pain, abnormal mammogram, abnormal US or breast enlargement Musc Musculoskeletal: Yes back problems, arthritis and gout; No rheumatoid arthritis or joint pain Cardio Cardiovascular: No murmur, pacemaker, heart disease, atrial fibrillation, high blood pressure, heart attack, heart stent, palpitations, shortness of breat with exertion or chest pain Psych Psychiatric: No depression, anxiety or hearing voices Resp Respiratory: No shortness of breath, No sleep apnea, No cough, No COPD, No asthma, No emphysema and No wheezing Gastro Gastrointestinal: Yes abdominal pain, No nausea or vomiting, No diarrhea, Yes constipation, No blood in stool, No acid reflux, No hemorrhoids, No ulcers, No gallbladder problem and No black,tarry stools Kurtis Hematologic: No blood thinners, No blood disorders, No bleeding, No anemia and No blood clots Neuro Neurologic: No system reviewed and no additional complaints, except as documented, No as per HPI, No abnormal gait, No abnormal hearing, No abnormal movements, No abnormal speech, No behavioral changes, No burning sensations, No confusion, No convulsions, No disequilibrium, No dizziness, No localized weakness, No frequent falls, No headache(s), No lack of coordination, No loss of vision, No memory loss, No numbness, No other visual disturbances, No radicular pain, No restless legs, No sensory deficit, No syncope, No tingling, No tremor(s), No weakness and No other Exam Const General: cooperative, comfortable and no acute distress [facility] Head: normal to inspection Eyes General: appearance normal, both eyes and all related structures Neck Neck: normal visual inspection Chest Chest palpation & inspection: normal inspection of the chest Resp Effort & Inspection: normal respiratory effort Cardio Rate: regular rate Rhythm: regular rhythm GI Palpation: soft and no hepatosplenomegaly Musc Cervical Spine: normal cervical lordosis Skin General: no rashes or lesions noted Neuro General: patient alert, patient awake and patient oriented x3 Extrem General: no calf tenderness Psych Appearance: grossly normal Assessment and Plan Assessment and Plan (1) Change in bowel function: Status: Acute (2) Abdominal pain: Status: Acute Qualifiers: Abdominal location: generalized Qualified Code(s): R10.84 - Generalized abdominal pain (3) Rectal bleeding: Status: Acute Plan: 52-year-old gentleman with a personal history of tubulovillous adenomas of the colon now presents with acute severe constipation followed by rectal bleeding and abdominal pain. He was ill enough to require visitation to emergency room when he was in [place]. Although he does not have records for me today he states that warrant any acute findings that time and he was instructed to follow-up when he returns to his home. He had previously intentionally lost 23 pounds of weight. He claims that his abdomen and bowel function has not returned to normal and he has a generalized feeling of unwellness I propose for him a contrasted abdominal pelvic CT scan. Not sure whether he possibly could have some low-grade diverticulitis causing obstructive symptoms and bleeding. I do recommend to the patient a colonoscopy with possible biopsy or polypectomy as indicated. He has had an opportunity to ask and have questions answered. We will try to expedite his care. I will check a CMP and a CBC and a lipase. Plan Copy:DO Vasquez Medina M.D., F.A.C.S ROS General General: Yes fatigue; No weight change, appetite, colon cancer, breast cancer or weakness HEENT HEENT: No difficulty swallowing, eye injury, eye surgery, swollen glands or hoarseness Endo Endocrine: No thyroid disease, diabetes mellitus, thyroid cancer, Hair loss, heat intolerance or cold intolerance Skin Skin: No rash or changing moles Breast Breast: No left breast lump, right breast lump, nipple discharge, breast pain, abnormal mammogram, abnormal US or breast enlargement Musc Musculoskeletal: Yes back problems, arthritis and gout; No rheumatoid arthritis or joint pain Cardio Cardiovascular: No murmur, pacemaker, heart disease, atrial fibrillation, high blood pressure, heart attack, heart stent, palpitations, shortness of breat with exertion or chest pain Psych Psychiatric: No depression, anxiety or hearing voices Resp Respiratory: No shortness of breath, No sleep apnea, No cough, No COPD, No asthma, No emphysema and No wheezing Gastro Gastrointestinal: Yes abdominal pain, No nausea or vomiting, No diarrhea, Yes constipation, No blood in stool, No acid reflux, No hemorrhoids, No ulcers, No gallbladder problem and No black,tarry stools Kurtis Hematologic: No blood thinners, No blood disorders, No bleeding, No anemia and No blood clots Neuro Neurologic: No system reviewed and no additional complaints, except as documented, No as per HPI, No abnormal gait, No abnormal hearing, No abnormal movements, No abnormal speech, No behavioral changes, No burning sensations, No confusion, No convulsions, No disequilibrium, No dizziness, No localized weakness, No frequent falls, No headache(s), No lack of coordination, No loss of vision, No memory loss, No numbness, No other visual disturbances, No radicular pain, No restless legs, No sensory deficit, No syncope, No tingling, No tremor(s), No weakness and No other Exam Const General: cooperative, healthy appearing and comfortable [facility] Head: normal to inspection Eyes General: appearance normal, both eyes and all related structures Neck Neck: normal visual inspection Chest Chest palpation & inspection: normal inspection of the chest Resp Effort & Inspection: normal respiratory effort Auscultation: clear to auscultation bilaterally Cardio Rate: regular rate Rhythm: regular rhythm GI Inspection: normal to inspection Palpation: soft and no hepatosplenomegaly Other: Previous left mid lower quadrant abdominal pain has resolved Musc Cervical Spine: normal cervical lordosis Skin General: no rashes or lesions noted Neuro General: patient alert and patient awake Extrem General: no calf tenderness Psych Appearance: grossly normal Assessment and Plan Assessment and Plan (1) Diverticulitis: Status: Acute Plan: Patient appears to resolved from a suspected episode of sigmoid diverticulitis. Presymptoms included rectal bleeding. I propose for him a colonoscopy with possible biopsy or polypectomy as indicated. He is aware of the technique, benefit, risk and alternatives. He has had an opportunity ask and have questions answered. We will schedule and proceed at his discretion. I appreciate the ongoing opportunity of assisting with the surgical care. Copy:DO Vasquez Medina M.D., F.A.C.S. Since the patient's office visit he was hospitalized with an unexplained condition of swelling in his legs with discoloration and mottling. Initially was told it was vasculitis however her blind stitch machine operator said no. I do not believe that he was seen by infectious disease. He claims that prednisone helped resolve the issue. Regarding his abdomen he still has intermittent rectal bleeding. He thinks this is secondary to hemorrhoids. He is had some slight weight gain. No unexpected weight loss. He claims that the severe abdominal pain that they had when he was in [facility] has not recurred. With a known mind we plan to proceed with a colonoscopy with possible biopsy or polypectomy as indicated. He is aware of the technique benefit risk complications alternatives. He has had an opportunity to ask and have questions answered. Clinically he remains stable. Vasquez Cortes M.D., F.A.C.S.
[2023-06-07 05:54] VITALS: BP 122/75; PULSE 79; RESP 18; TEMP 36.6; O2SAT 97; BMI 36.7
[2023-06-07] MEDS: Lactated Ringers 1,000 ML 15 ML IV (06:05)
[2023-06-07 06:47] VITALS: BP 122/75; BP 129/87; PULSE 79; RESP 16; TEMP 36.2; O2SAT 95
--- NOTE | 2023-06-07 06:48 | OP.COLON_ITS ---
Patient Name: Haseeb Hadley Procedure Date: 06/07/2023 6:10 AM Date of : 1970 Age: 53 Procedure: Colonoscopy Indications: Abnormal CT of the GI tract Providers: Vasquez Cortes MD Medicines: See the Anesthesia note for documentation of the administered medications Patient Profile: Last Colonoscopy: May 2020. Complications: No immediate complications. Procedure: Pre-Anesthesia Assessment: - Prior to the procedure, a History and Physical was performed, and patient medications and allergies were reviewed. The patient's tolerance of previous anesthesia was also reviewed. The risks and benefits of the procedure and the sedation options and risks were discussed with the patient. All questions were answered, and informed consent was obtained. Prior Anticoagulants: The patient has taken no anticoagulant or antiplatelet agents. ASA Grade Assessment: II - A patient with mild systemic disease. After reviewing the risks and benefits, the patient was deemed in satisfactory condition to undergo the procedure. After I obtained informed consent, the scope was passed under direct vision. Throughout the procedure, the patient's blood pressure, pulse, and oxygen saturations were monitored continuously. The adult colonoscope was introduced through the anus and advanced to the cecum, identified by appendiceal orifice and ileocecal valve. The colonoscopy was performed without difficulty. The patient tolerated the procedure well. The quality of the bowel preparation was good. The ileocecal valve and the appendiceal orifice were photographed. Scope In: 6:32:13 AM Scope Withdrawal Time 0 hours 6 minutes 55 seconds Scope Out: 6:43:00 AM Total Procedure Duration Time 0 hours 10 minutes 47 seconds Findings: The digital rectal exam findings include non-thrombosed external hemorrhoids, non-thrombosed internal hemorrhoids and internal hemorrhoids that prolapse with straining, but spontaneously regress to the resting position (Grade II). Pertinent negatives include normal prostate (size, shape, and consistency). Multiple diverticula were found in the sigmoid colon and descending colon. The exam was otherwise without abnormality. Impression: - Non-thrombosed external hemorrhoids, non-thrombosed internal hemorrhoids and internal hemorrhoids that prolapse with straining, but spontaneously regress to the resting position (Grade II) found on digital rectal exam. - Diverticulosis in the sigmoid colon and in the descending colon. - The examination was otherwise normal. - No specimens collected. Recommendation: - Discharge patient to home. - Resume previous diet. - Continue present medications. - Repeat colonoscopy in 5 years for surveillance. Procedure Code(s): --- Professional --- 60913, Colonoscopy, flexible; diagnostic, including collection of specimen(s) by brushing or washing, when performed (separate procedure) Diagnosis Code(s): --- Professional --- K64.1, Second degree hemorrhoids K64.4, Residual hemorrhoidal skin tags K57.30, Diverticulosis of large intestine without perforation or abscess without bleeding R93.3, Abnormal findings on diagnostic imaging of other parts of digestive tract CPT copyright 2021 [employer]. All rights reserved. The codes documented in this report are preliminary and upon tractor operator helper review may be revised to meet current compliance requirements. Vasquez Cortes MD 06/07/2023 6:47:50 AM This report has been signed electronically. Number of Addenda: 0 Note Initiated On: 06/07/2023 6:10 AM
--- NOTE | 2023-06-07 06:49 | OP.CCLET_ITS ---
06/07/2023 Rhiannon Obrien Do Re : Colonoscopy procedure for Haseeb Hadley Dear Dr. Obrien This procedure was performed on Wednesday, June 07, 2023. My impressions and recommendations are as follows: Impressions : - Non-thrombosed external hemorrhoids, non-thrombosed internal hemorrhoids and internal hemorrhoids that prolapse with straining, but spontaneously regress to the resting position (Grade II) found on digital rectal exam. - Diverticulosis in the sigmoid colon and in the descending colon. - The examination was otherwise normal. - No specimens collected. Recommendations : - Discharge patient to home. - Resume previous diet. - Continue present medications. - Repeat colonoscopy in 5 years for surveillance. My findings are described in the full procedure note, which is enclosed. If I can be of further assistance, please feel free to contact me at Doctor phone number(s): Work: . Sincerely, Vasquez Cortes MD 06/07/2023 6:47:50 AM This report has been signed electronically.
[2023-06-07 06:50] VITALS: BP 121/86; BP 122/75; PULSE 76; RESP 16; O2SAT 97
[2023-06-07 06:55] VITALS: BP 118/84; BP 122/75; PULSE 79; RESP 16; O2SAT 95
[2023-06-07 06:58] VITALS: BP 122/75; BP 130/84; PULSE 75; RESP 16; TEMP 36.3; O2SAT 95
[2023-06-07 07:10] VITALS: BP 122/75
== END 2023-06-07 07:17 | disposition home or self-care (01) ==
LOC: EN 05:28 → AC 05:29
PROVIDERS: Visit Provider Surgery
PROC: 0DJD8ZZ Inspection of Lower Intestinal Tract, Via Natural or Artificial Opening Endoscopic (ICD-10-PCS; CPT 45378; principal; 2023-06-07 06:25)
DX: K64.1 Second degree hemorrhoids (principal); K21.00 Gastro-esophageal reflux disease with esophagitis, without bleeding; I10 Essential (primary) hypertension; E78.00 Pure hypercholesterolemia, unspecified; K64.4 Residual hemorrhoidal skin tags; Z96.641 Presence of right artificial hip joint; F17.200 Nicotine dependence, unspecified, uncomplicated; Z98.1 Arthrodesis status; K57.30 Diverticulosis of large intestine without perforation or abscess without bleeding; Z86.010 Personal history of colon polyps; K29.70 Gastritis, unspecified, without bleeding; Z79.899 Other long term (current) drug therapy
CPT/HCPCS: 45378; J7120; J2405